=== PATIENT | male | born 1965 | race Caucasian/White ===

== ENCOUNTER → 2022-10-08 08:40 | Outpatient (BNVA) | payer MEDICARE, SELFPAY | PROVIDERS: PCP Nurse Practitioner Family; Visit Provider Nurse Practitioner Family | DX: I10 Essential (primary) hypertension (principal); F41.1 Generalized anxiety disorder; G89.29 Other chronic pain; E11.40 Type 2 diabetes mellitus with diabetic neuropathy, unspecified; E78.5 Hyperlipidemia, unspecified; E11.9 Type 2 diabetes mellitus without complications; G25.81 Restless legs syndrome; Z76.89 Persons encountering health services in other specified circumstances | CPT/HCPCS: 80053; 80061; 81003; 82040; 83036; 84270; 84403; 84439; 84443; 85025 ==

== ENCOUNTER 2023-02-28 11:30 | Emergency (ER) | payer MEDICARE, SELFPAY ==
[2023-02-28 11:46] VITALS: BP 128/70; PULSE 64; RESP 17; TEMP 36.6; O2SAT 94
--- NOTE | 2023-02-28 12:14 | XRR_ITS ---
PROCEDURE INFORMATION: Exam: XR Right Knee Exam date and time: 02/28/2023 12:27 PM Age: 57 years old Clinical indication: Right; Patient HX: RT knee pain after squatting; No previous injury TECHNIQUE: Imaging protocol: Radiologic exam of the right knee. Views: 3 views. COMPARISON: No relevant prior studies available. FINDINGS: Bones/joints: No fracture or dislocation. Mild degenerative changes. Soft tissues: No acute findings. Vascular calcifications. XR/XR knee RT 3V* [id number] IMPRESSION: No acute findings.
--- NOTE | 2023-02-28 12:19 | W.ED.EXTPRO ---
HPI - Extremity Problem General: Chief complaint: Extremity Injury, Lower Stated complaint: right knee pain, swollen Time Seen by Provider: 02/28/23 12:12 Source: patient Mode of arrival: ambulatory Limitations: no limitations History of Present Illness: 57-year-old male states on he had bent down started having right knee pain. States he had pain in his knees before states his pain is continued. States it is worse with movement improved with rest denies any radiation of his pain he states his knee is felt warm denies any fevers Associated symptoms: Deny chest pain, fever(s) or rash Review of Systems Const: Denies: fever(s), chills, body aches or change in appetite ENMT: Denies: throat pain or dental pain Card: Denies: chest pain Resp: Denies: dyspnea GI: Denies: abdominal pain, nausea, vomiting or diarrhea Musc: Reports: extremity pain; Denies: neck pain or back pain Skin/Breast: Denies: rash Neuro: Denies: headache(s) PFSH ED PFSH: Medical History Chronic low back pain Chronic neck pain History of anxiety History of depression Physical Exam Const: COMMON NORMALS: no acute distress, patient oriented x3 and healthy appearing HENMT: COMMON NORMALS: normocephalic and atraumatic HEAD & SCALP: normocephalic and atraumatic Neck/C-Spine: COMMON NORMALS: full ROM and supple Chest: COMMONS NORMALS: normal inspection of the chest Resp: COMMON NORMALS: normal respiratory effort Cardio: COMMON NORMALS: regular rate RATE: regular rate Extremity: COMMON NORMALS: normal to inspection NARRATIVE EXTREMITY EXAM: Tenderness over right knee has some pain with range of motion no redness no warmth to touch distal pulses sensation intact Neuro: COMMON NORMALS: patient oriented x3, moves all extremities and no focal motor deficits Psych: COMMON NORMALS: mental status grossly normal, Normal thought process present and cooperative THOUGHT PROCESS: Normal thought process present Skin: COMMON NORMALS: no rashes or lesions noted and no wounds GENERAL SKIN EXAM: no rashes or lesions noted Course Vital Signs: Vital signs: Vital Signs Temperature 97.9 F 02/28/23 11:46 Pulse Rate 64 02/28/23 12:21 Respiratory Rate 18 02/28/23 12:42 Blood Pressure 128/70 12/16/23 11:46 Pulse Oximetry 98 02/28/23 12:42 Oxygen Delivery Me thod Room Air 02/28/23 12:42 MDM - Extremity (Nontraumatic) Medical Decision Making Patient presents here with right knee pain is no signs of septic joint blood works normal x-ray is normal as well. Will get him follow-up with orthopedics he is stable for discharge return if worsening. Medical Records I reviewed the patient's medical records. Lab Data I reviewed the patient's lab results. 02/28/23 12:30 Radiology Impressions Knee X-Ray 02/28/23 12:14 IMPRESSION: No acute findings. Laboratory Results WBC 9.48 10^3/uL (3.29-11.43) 02/28/23 12:30 RBC 4.89 10^6/uL (3.85-5.65) 02/28/23 12:30 Hgb 14.50 g/dL (11.27-16.99) 02/28/23 12:30 Hct 44.4 % (37-53) 02/28/23 12:30 MCV 90.8 fl (82-101) 02/28/23 12:30 MCH 29.7 pg (27-33) 02/28/23 12:30 MCHC 32.7 g/dL (30-55) 02/28/23 12:30 RDW 12.6 % (12.1-15.1) 02/28/23 12:30 Plt Count 219 10^3/cmm (157-399) 02/28/23 12:30 MPV 10.1 fL (7.4-10.4) 02/28/23 12:30 Neut % (Auto) 76.4 % 02/28/23 12:30 Lymph % (Auto) 12.3 % 02/28/23 12:30 [place] % (Auto) 9.1 % 02/28/23 12:30 Eos % (Auto) 1.3 % 02/28/23 12:30 Baso % (Auto) 0.5 % 02/28/23 12:30 Neut # (Auto) 7.24 10^3/uL (1.8-7.7) 02/28/23 12:30 Lymph # (Auto) 1.2 10^3/uL (0.8-4.8) 02/28/23 12:30 [place] # (Auto) 0.9 10^3/uL (0.2-0.9) 02/28/23 12:30 Eos # (Auto) 0.1 10^3/uL (0.0-0.8) 02/28/23 12:30 Baso # (Auto) 0.1 10^3/uL (0.0-0.1) 02/28/23 12:30 Nucleated RBC % (auto) 0 % 02/28/23 12:30 Nucleated RBCs # 0.0 /100WBC 02/28/23 12:30 C-Reactive Protein 4.5 mg/L (0.0-4.9) 02/28/23 12:30 All radiology interpretation(s) finalized by discharge Discharge Plan Discharge Patient Disposition: Home Clinical Impression: Knee pain, right Qualifiers: Chronicity: acute Qualified Code(s): M25.561 - Pain in right knee Condition: Stable Prescriptions: New Naprosyn 500 mg tablet 500 mg PO BID PRN (Reason: pain) Qty: 20 0RF No Action Novolin R FlexPen 100 unit/mL (3 mL) insulin pen 6 unit SUBCUT BID montelukast 10 mg tablet 10 mg PO QPM oxycodone-acetaminophen 10-325 mg tablet 1 tab PO TID loratadine [Claritin] 10 mg tablet 10 mg PO DAILY PRN (Reason: ALLERGIES) One-A-Day Men VitaCraves 200 mcg tablet,chewable 1 tab PO QAM (DME) blood-glucose meter [Accu-Chek Dhara Plus Meter] Misc See Rx Instructions .Route Qty: 1 0RF Rx Instructions: use to check blood sugar three times daily (DME) Accu-Chek Dhara Plus test strp Strip See Rx Instructions .Route Qty: 100 2RF Rx Instructions: use to check blood sugar tid atorvastatin 20 mg tablet 20 mg PO DAILY gabapentin 600 mg tablet 600 mg PO TID lisinopril 20 mg tablet 20 mg PO QAM baclofen 10 mg tablet 10 mg PO TID PRN (Reason: muscle spasm) Qty: 90 1RF (DME) lancets [BD Ultra Fine Lancets] 33 gauge misc See Rx Instructions .Route Qty: 100 2RF Rx Instructions: use to check blood sugar 4 times per day sertraline [Zoloft] 50 mg tablet 50 mg PO DAILY Qty: 90 0RF Vitamin D3 50 mcg (2,000 unit) Capsule 50 mcg PO DAILY Lantus Solostar U-100 Insulin 100 unit/mL (3 mL) insulin pen 40 unit SUBCUT QAM Discharge Orders: Discharge ED (Routine); Ordered 02/28/23 Ordered By: Bell Kauffman Referrals: Karen Larson MD [Physician] - 1-3 days Osmany Garcia FNP [Primary Care Provider] - Discharge Diet: Advance as tolerated Discharge Activity: Increase activity as tolerated Patient Instructions: Knee Pain (ED) Coding Level of Care Code ED Licensed Bondsman for Francisco J Santos
[2023-02-28 12:21] VITALS: PULSE 64; RESP 15; O2SAT 94
[2023-02-28 12:35] LABS: Basophils # 0.1 10^3/uL (0.0-0.1); Basophils % 0.5 %; Eosinophils # 0.1 10^3/uL (0.0-0.8); Eosinophils % 1.3 %; Hematocrit 44.4 % (37-53); Lymphocytes # 1.2 10^3/uL (0.8-4.8); Lymphocytes % 12.3 %; Mean Corpuscular HGB Conc 32.7 g/dL (30-55); Mean Corpuscular Hemoglobin 29.7 pg (27-33); Mean Corpuscular Volume 90.8 fl (82-101); Mean Platelet Volume 10.1 fL (7.4-10.4); Monocytes # 0.9 10^3/uL (0.2-0.9); Monocytes % 9.1 %; Neutrophils # 7.24 10^3/uL (1.8-7.7); Neutrophils % 76.4 %; Nucleated Red Blood Cells % 0 %; Platelet Count 219 10^3/cmm (157-399); Red Blood Count 4.89 10^6/uL (3.85-5.65); Red Cell Distribution Width 12.6 % (12.1-15.1); White Blood Count 9.48 10^3/uL (3.29-11.43)
[2023-02-28] MEDS: HYDROcodone-acetaminophen 5-325 mg Tablet 1 TAB PO (12:36)
[2023-02-28 12:41] VITALS: RESP 18; O2SAT 98
[2023-02-28] MEDS: morphine 4 mg/mL SDV 1 mL IM (12:41)
[2023-02-28] MEDS: ondansetron 2 mg/ML SDV 2 mL 4 MG IM (12:41)
[2023-02-28 12:42] VITALS: RESP 18; O2SAT 98
[2023-02-28 12:56] LABS: C Reactive Protein 4.5 mg/L (0.0-4.9)
[2023-02-28 13:38] VITALS: BP 129/70; RESP 18; O2SAT 98
--- NOTE | 2023-03-02 09:02 | DCPLANNER ---
Referral was sent to Dr. Larson office on 03/02/23 at 0903. [facility] to contact patient.
== END 2023-02-28 13:39 | disposition home or self-care (01) ==
PROVIDERS: Emergency Provider Emergency Medicine; PCP Nurse Practitioner Family
DX: M25.561 Pain in right knee (principal); Z79.4 Long term (current) use of insulin
CPT/HCPCS: 73562; 85025; 86140; 96372; 99284; J2270; J2405

== ENCOUNTER → 2023-03-19 14:49 | Outpatient (BNVA) | payer MEDICARE, SELFPAY | PROVIDERS: PCP Nurse Practitioner Family; Referring Provider Emergency Medicine; Visit Provider Nurse Practitioner | DX: M25.361 Other instability, right knee; M17.11 Unilateral primary osteoarthritis, right knee | CPT/HCPCS: 73560; 73565; 99204 ==

== ENCOUNTER → 2023-04-07 10:56 | Outpatient (BNVA) | payer MEDICARE, SELFPAY | PROVIDERS: PCP Nurse Practitioner Family; Visit Provider Nurse Practitioner Family | DX: F41.1 Generalized anxiety disorder (principal); R53.83 Other fatigue; M25.361 Other instability, right knee; G47.00 Insomnia, unspecified; Z79.899 Other long term (current) drug therapy | CPT/HCPCS: 82607; 84443 ==

== ENCOUNTER 2023-04-21 13:25 | Outpatient (CLI) | payer MEDICARE, SELFPAY ==
--- NOTE | 2023-04-21 13:45 | MR_ITS ---
WS: [id number] MRI RIGHT KNEE HISTORY: Pain, history of prior trauma. COMPARISON: Radiograph 02/28/2023 Anterior cruciate ligament: Intact. Posterior cruciate ligament: Intact. Medial collateral ligament: Intact. Posterior lateral corner structures: Intact. Medial menisci: Intact. Normal signal, size and shape. Lateral meniscus: No significant identifiable posterior horn of the lateral meniscus. There is fluid replacing nearly entire space of the meniscus. Mild intrasubstance degeneration in the anterior horn. There is fluid extending through the posterior meniscal capsular fascicles. Extensor mechanism: Distal quadriceps tendon and patellar tendons are intact. Fluid and soft tissue: Moderate to large joint effusion. There is a large amount of soft tissue edema surrounding the knee. This is predominantly along the anterior, medial and lateral knee. No Roldan's cyst. There is a large amount of fluid surrounding the popliteus tendon. The tendon does appear to be intact. Normal attachment of the soleus muscle. Osseous and articular structures: Patellofemoral compartment: Normal. Medial compartment: Mild narrowing of the medial compartment. Mild fraying of the cartilage. Lateral compartment: Mild narrowing of the lateral compartment with fraying of the cartilage. No full -thickness defects. Focal area of marrow edema involving the proximal tibia extending to the base of the tibial spines. M arrow edema crosses into the medial and lateral tibial plateau and there is a lucency suggesting micr ofractures extending to the posterior surface of the patella. IMPRESSION: 1. Macerated posterior horn medial meniscus. No significant component of the meniscus remains. Findi ngs of meniscocapsular separation. 2. Focal marrow edema involving the central tibial plateau with microfractures. 3. Moderate to large joint effusion with a large amount of edema surrounding the knee. 4. There is a large amount of fluid surrounding the popliteus tendon but the tendon appears to be in tact.
== END 2023-04-21 13:26 | disposition home or self-care (01) ==
LOC: RAD 13:26
PROVIDERS: PCP Nurse Practitioner Family; Visit Provider Nurse Practitioner
DX: M25.461 Effusion, right knee (principal); M25.561 Pain in right knee
CPT/HCPCS: 73721

== ENCOUNTER → 2023-04-27 12:45 | Outpatient (BNVA) | payer MEDICARE, SELFPAY | PROVIDERS: PCP Nurse Practitioner Family; Visit Provider Nurse Practitioner | DX: M25.361 Other instability, right knee (principal); M17.11 Unilateral primary osteoarthritis, right knee | CPT/HCPCS: 99213 ==

== ENCOUNTER → 2023-04-29 16:47 | Outpatient (BNVA) | payer MEDICARE, SELFPAY | PROVIDERS: PCP Nurse Practitioner Family; Visit Provider Nurse Practitioner | DX: M17.11 Unilateral primary osteoarthritis, right knee; M25.361 Other instability, right knee | CPT/HCPCS: 99213 ==

== ENCOUNTER 2023-05-21 16:12 | Outpatient (CLI) | payer MEDICARE, SELFPAY ==
--- NOTE | 2023-05-21 17:00 | CT_ITS ---
WS: [id number] CT RIGHT KNEE, NONCONTRAST TECHNIQUE: Noncontrast CT of the RIGHT knee to include the RIGHT hip and ankle. [facility] CLINICAL INFORMATION: Pre-surgical planning DLP: [id number] scans at [facility] use at least one of these dose optimization techniques: automated e xposure control; mA and/or kV adjustment per patient size (includes targeted exams where dose is matc hed to clinical indication); or iterative reconstruction. FINDINGS: Moderate degenerative arthritis RIGHT knee worse in the medial joint compartment. Moderate suprapatel lar effusion. Slightly hypertrophic patella. Vascular calcification. Degenerative arthritis sacroiliac joints. IMPRESSION: Images obtained for preoperative purposes.
== END 2023-05-21 16:13 | disposition home or self-care (01) ==
LOC: RAD 16:13
PROVIDERS: PCP Nurse Practitioner Family; Visit Provider Nurse Practitioner
DX: Z01.818 Encounter for other preprocedural examination (principal); E11.9 Type 2 diabetes mellitus without complications; M17.11 Unilateral primary osteoarthritis, right knee; M46.1 Sacroiliitis, not elsewhere classified
CPT/HCPCS: 73700; 80053; 81003; 83036; 85025

== ENCOUNTER 2023-05-28 08:42 | Observation (INO) | payer MEDICARE, SELFPAY ==
[2023-05-28] VITALS (18 sets, daily range): BP systolic 91–154; BP diastolic 55–83; PULSE 57–90; RESP 15–18; TEMP 35.9–36.5; O2SAT 90–96; BMI 31.9
--- NOTE | 2023-05-28 06:57 | ANES.PREANE2 ---
Pre-Anesthetic Assessment Height/Weight: Height 1.73 m Weight 95.254 kg Temp Pulse Resp BP Pulse Ox O2 Del Method 96.7 F L 76 18 138/83 93 Room Air 05/28/23 06:56 05/28/23 06:56 05/28/23 06:56 05/28/23 06:56 05/28/23 06:56 05/28/23 06:56 Operation Date: 05/28/23 08:00 Proposed Procedures p Jose Robot Total Knee Arthroplasty(Right) - Karen Larson MD Familial anesthetic complications: None Was Beta Alo taken within 24 hours: N/A Was Clonidine taken within 24 hours: N/A Last intake: Intake Last Liquid Date 05/27/23 Last Liquid Time 23:00 Last Solid Date 05/27/23 Last Solid Time 21:00 Social No alcohol and No tobacco Exam alert, oriented x 3, clear to auscultation bilaterally and regular rate & rhythm Airway Mallampati: Class II Dentition: full CV/HEM Hypertension LBBB S/p nephrectomy Metabolic Diabetes Mellitus and Hyperlipidemia Anesthetic Plan ASA status: 3 Anesthesia: Regional (specify below) (Spinal + Adductor) Risk of > 500 ml blood loss (7ml/kg in children): No Medications/Allergies Home Medications Medication Instructions Recorded Confirmed Last Taken Type loratadine 10 mg tablet (Claritin) 10 mg PO DAILY PRN ALLERGIES 09/26/22 05/27/23 Unknown History montelukast 10 mg tablet 10 mg PO QPM 09/26/22 05/27/23 05/26/23 History multivitamin with minerals-folic 1 tab PO QAM 09/26/22 05/27/23 05/27/23 History acid 200 mcg chewable tablet (One-A-Day Men VitaCraves) oxycodone-acetaminophen 10 mg-325 1 tab PO TID 09/26/22 05/28/23 05/28/23 04:30 History mg tablet atorvastatin 20 mg tablet 20 mg PO DAILY 10/03/22 05/27/23 05/27/23 History blood-glucose meter (Accu-Chek #1 ea 10/03/22 04/29/23 Unknown Rx Dhara Plus Meter) gabapentin 600 mg tablet 600 mg PO TID 10/03/22 05/28/23 05/28/23 04:30 History lisinopril 20 mg tablet 20 mg PO QAM 10/03/22 05/27/23 05/27/23 History lancets 33 gauge (BD Ultra Fine #100 ea 10/28/22 04/29/23 Unknown Rx Lancets) baclofen 10 mg tablet 10 mg PO TID PRN muscle spasm #90 12/17/22 05/27/23 05/25/23 Rx tabs cholecalciferol (vitamin D3) 50 50 mcg PO DAILY 02/28/23 05/27/23 05/27/23 History mcg (2,000 unit) capsule (Vitamin D3) meloxicam 15 mg tablet 15 mg PO DAILY #90 tabs 03/19/23 05/27/23 05/22/23 Rx sertraline 50 mg tablet (Zoloft) 50 mg PO DAILY #90 tabs 04/01/23 05/27/23 05/26/23 20:00 Rx lorazepam 0.5 mg tablet 0.5 mg PO DAILY PRN anxiety #15 04/07/23 05/28/23 05/28/23 04:30 Rx tabs mecobalamin (vitamin B12) 10,000 1,000 mcg IM .monthly #1 ea 04/07/23 05/27/23 04/22/23 Rx mcg solution for injection right leg brace #1 ea 04/23/23 04/29/23 Unknown Rx insulin regular human 100 unit/mL 6 unit (0.06 mL) SUBCUT BID #15 mL 05/14/23 05/27/23 05/27/23 Rx (3 mL) subcutaneous pen (Novolin R FlexPen) blood sugar diagnostic (Accu-Chek #100 ea 05/15/23 Unknown Rx Dhara Plus test strips) insulin glargine 100 unit/mL (3 42 unit SUBCUT QAM 05/21/23 05/27/23 05/27/23 07:00 History mL) subcutaneous pen (Lantus Solostar U-100 Insulin) Allergies Allergy/AdvReac Type Severity Reaction Status Date / Time metformin Allergy Unknown Uncoded 05/21/23 14:58 [facility] Anesthesia Medical History Instability of right knee joint Primary osteoarthritis of right knee Chronic neck pain Chronic low back pain History of depression History of anxiety Data Anesthesia Cardiac Studies: No Data to Display
[2023-05-28] MEDS: sodium chloride 0.9% 1,000 ML 30 ML IV (07:10)
[2023-05-28] MEDS: acetaminophen 1,000 MG/100 ML PIGGYBACK 400 MG IV ×3 (07:10→23:27)
[2023-05-28 07:26] LABS: Glucose Point of Care 116 mg/dL (70-110)
[2023-05-28] MEDS: CELEcoxib 200 mg Capsule 400 MG PO (07:30)
--- NOTE | 2023-05-28 08:04 | P.HPUD_ITS ---
Surgery/Procedure H&P Update DATE OF PROCEDURE: May 28, 2023 DATE H&P PERFORMED: 05/21/23 H&P UPDATE INFORMATION: I have reviewed H&P completed within last 30 days, I have examined patient prior to procedure, No changes to prior documentation and H&P is in [facility] EMR on date indicated CHANGES TO PREVIOUS DOCUMENTATION: Risks and complications further discussed with patient and his in pre-op area. PLANNED PROCEDURE: Operation Date: 05/28/23 08:00 Proposed Procedures p Jose Robot Total Knee Arthroplasty(Right) - Karen Larson MD Related Problem List Diagnoses (1) Primary osteoarthritis of right knee:
[2023-05-28] MEDS: ceFAZolin 2,000 MG in sodium chloride 0.9% (plus) 50 ML 100 MG IV ×2 (08:11→15:58)
[2023-05-28] MEDS: tranexamic acid 1,000 mg/10mL SDV 1000 MG IV (08:28)
--- NOTE | 2023-05-28 08:29 | PC.NURSE ---
Pre op gabapentin not given because pt already took gabapentin at home this morning. Nerve block done on right leg by Dr. Peter.
[2023-05-28] MEDS: BUPivacaine 0.5% INJ 30 mL 20 ML INJECTION (09:12)
[2023-05-28] MEDS: BUPivacaine liposome 13.3 mg/mL SDV 10 mL 266 MG INJECTION (09:12)
[2023-05-28] MEDS: ceFAZolin 1,000 mg SDV 2000 MG IRRIGATION (09:13)
[2023-05-28] MEDS: vancomycin 1,000 MG SDV 1000 MG XX (09:14)
[2023-05-28] MEDS: sodium chloride 0.9% 50 ML 0.100000000000000006 ML (09:16)
--- NOTE | 2023-05-28 11:11 | XRR_ITS ---
PROCEDURE INFORMATION: Exam: XR Right Knee Exam date and time: 05/28/2023 10:35 AM Age: 57 years old Clinical indication: Device placement; Joint replacement hardware; Prior surgery; Surgery date: Post-operative (0-2 days); Surgery type: Right total knee arthroplasty; Additional info: Status post right total knee arthroplasty TECHNIQUE: Imaging protocol: Radiologic exam of the right knee. Views: 1 or 2 views. COMPARISON: CT knee RT [facility] [id number] 05/21/2023 4:26 PM FINDINGS: Bones/joints: Status post recent right knee total arthroplasty. No radiographic evidence of hardware fracture or perihardware lucency. Soft tissues: Expected subcutaneous air about the knee and within the joint. Vasculature: Vascular calcific disease. XR/XR knee RT 1-2V [id number] IMPRESSION: Status post recent right knee total arthroplasty. No radiographic evidence of hardware complication.
--- NOTE | 2023-05-28 11:33 | P.OP_ITS ---
Operative Report Date of procedure: May 28, 2023 Pre-op diagnosis: Primary osteoarthritis right knee with maceration of the medial meniscus Post-op diagnosis: Primary osteoarthritis right knee with maceration of the medial meniscus Post-op findings: Severe degenerative osteoarthritis right knee with bucket-handle lateral meniscal tear with maceration Procedure done: Right total knee arthroplasty with Jose guidance Implants: The Terese total knee system with a size 4 triathlon beaded cruciate retaining femur right, a triathlon titanium tibial component size 4 beaded, a triathlon X3 tibial bearing CS insert size 4 X 9 mm and a beaded triathlon titanium asymmetric patella size 35 x 10 mm Specimens removed/disposition: Bone, disposed of Pathology: None Surgeon: Karen Larson MD Finance Vice President: Judy Evans, nurse practitioner, who services were essential for positioning, retraction, closure, and completion of the surgical procedure Anesthesia: Spinal (With MAC, ASA 3) Estimated blood loss (mL): 300 Tourniquet time (min): 0 (Not utilized) IV fluids (mL): 1,200 Urine output (mL): 150 Complications: None Findings: Significant degenerative osteoarthritis with bucket-handle tear of the lateral meniscus and maceration of the medial meniscus Condition: stable Disposition: PACU (Then admit to floor for postoperative rehabilitation and pain management) Brief History: This 57-year-old gentleman presents today for right total knee arthroplasty with Jose guidance. The patient noted that he began having pain in the right knee quite a while ago, however, this worsened following an injury on February 26, 2023. He had mechanical symptoms of locking popping and giving way. The pain was worse with movement and improved with rest. MRI demonstrated a macerated posterior horn the medial meniscus with large to moderate joint effusion and edema surrounding the knee. There was focal marrow edema involving the central tibial plateau with microfractures as well. X-ray imaging demonstrated degenerative changes throughout the knee with no evidence of acute fracture. After discussion, the patient wished to proceed with total knee arthroplasty. Risks and complications were discussed with him. Consents were signed and questions were answered. Procedure: The patient was brought to the operating theater, and after undergoing spinal anesthesia with supplemental MAC, as well as an adductor canal block, ASA 3, the right lower extremity was prepped with Dura-Prep and draped in usual fashion following placement of a tourniquet high on the leg. The leg was then draped free.? Tourniquet was not elevated during the case.? A surgical pause was performed, and at the time of the surgical pause, we confirmed the site and side of surgery. Additionally, we confirmed the appropriate and timely administration of preoperative antibiotics, Ancef 2 g and Transexemic acid 1 g.? The availability of equipment was confirmed, and the patient's identity was verbalized as well.? An additional transexemic acid 1 g was given at the end of the surgical procedure as well. Following the surgical pause, an incision was made centering over the patella continuing proximally and distally as necessary to allow access to the knee joint. Dissection continued through skin and soft tissues using a scalpel. Hemostasis was obtained using electrocautery. The skin incision was followed by a median parapatellar arthrotomy. The leg was extended, and the patella was able to be displaced laterally.? Appropriate arrays and markers were placed in appropriate position for use of the Jose.? Preoperative planning had been accomplished and was discussed in detail with the [facility] junior sales representative.? Intraoperative mapping of the femur and tibia was accomplished after the arrays were placed.? Internal markers were also placed.? Once we had accomplished the Jose mapping, we began the appropriate resections for placement of the prosthes is.? The plan was for a cruciate retaining right total knee arthroplasty. Once appropriate mapping had been accomplished retraction was established using manual retraction by surgical technicians and also the [facility] leg positioner and retractors.? The knee was evaluated.? There was significant osteoarthritic change as well as slight flexion contracture along with his varus deformity.? Appropriate bone resection was accomplished using the Jose.? The femur was sized to a size 4.? Following femoral cuts, attention was directed to the tibia.? Osteophytes were removed prior to this portion of the procedure.? We had performed a medial release at the beginning of the procedure to allow for placement of the array.? Proximal tibia was evaluated, and it was felt that appropriate size for the tibia was a size 4.? Tray was noted to fit nicely with good coverage.? Rim fit was accomplished with the size 4. A trial reduction was accomplished after osteophytes have been removed as well as the medial and lateral menisci.? We had removed the anterior cruciate ligament at the beginning of the case and preserved the posterior cruciate ligament.? Trial reduction was accomplished with a size 4 femoral cruciate retaining component and a size 4 CS tibial bearing insert which was 10 mm in thickness initially, and this was decreased under trial reduction to a size 9 mm. Alignment was felt to be appropriate as well.? Trial components were removed after the femur had been drilled.? Prior to removal of the tibial tray which had been pinned in position with appropriate rotation as determined by the Jose plan, we broached the tibia.? Subsequently, the 4 drill holes were made for the prosthetic component.? All trial components were removed, and the wound was irrigated.? Plans were made for insertion of the prosthetic components.? Prior to this, the patella was manually prepared.? After resection of the articular surface with the jigging system, it was measured and measured a 35 mm patella.? We resected approximately 10 mm of patella.? Patellar height was restored with the patellar component. Once again, the wound was irrigated.? The Tritanium tibia was impacted into position.? The beaded femur was then impacted into position in a cementless fashion. The CS tibial insert was placed prior to placement of the femoral component. The patella was pressed into position with a patellar clamp.? Exparel was injected about the components deep and superficially.? The knee was then copiously irrigated with betadine and saline and suctioned dry. Attention was then directed to closure. Closure was accomplished with 0 Vicryl in the fascial tissues.? The suture line of 0 Vicryl was supplemented with strata fix, #1, with a running stitch from proximal to distal and a second running stitch from distal to proximal.? This was followed by Surgiflo and vancomycin powder.? Following this, a 2-0 Monocryl was used in the subcutaneous tissues, and the skin was closed with 3-0 Strata fix.? Care was taken to assure an excellent subcutaneous as well as skin closure.? A sterile dressing was then placed consisting of Dermabond Prineo, OpSite, ABD, sterile soft roll, and an Deonte wrap including over the foot. The patient was returned the Recovery Room in a satisfactory condition. X-rays were obtained and reviewed there.? The patient will be discharged to the floor for postoperative rehabilitation and pain management. Related Problem List Diagnoses (1) Primary osteoarthritis of right knee: (2) Instability of right knee joint:
--- NOTE | 2023-05-28 12:00 | ANE.PACU2 ---
Inpatient post-anesthesia follow up: Airway intact: Yes Vital signs: Temperature 97.7 F Pulse Rate 69 Respiratory Rate 16 Blood Pressure 129/74 Pulse Oximetry 96 Oxygen Delivery Me thod Room Air Oxygen Flow Rate 6 Fraction of Inspir ed Oxygen Hydration adequate: Yes Nausea and vomiting: No Pain level: 1 Mental status: Baseline
--- NOTE | 2023-05-28 12:41 | PC.NURSE ---
Patient takes Casa at bedtime and lorazepam PRN
[2023-05-28] MEDS: oxyCODONE 5 mg IR Tab/Cap PO ×3 (13:26→23:26)
[2023-05-28] MEDS: chlorhexidine gluconate 0.12% Btl 473 mL 30 ML MUCOUS MEM ×3 (13:30→20:10)
[2023-05-28] MEDS: gabapentin 300 mg Capsule 600 MG PO ×2 (15:37→20:08)
[2023-05-28 16:37] LABS: Glucose Point of Care 193 mg/dL (70-110)
[2023-05-28] MEDS: mupirocin oint 22 gm 1 APPLIC NASAL (17:51)
[2023-05-28] MEDS: insulin lispro 100 unit/1 mL 6 UNIT SUBCUT (17:51)
[2023-05-28] MEDS: calcium carbonate 500 mg Chew Tablet 1000 MG PO (17:51)
[2023-05-28] MEDS: montelukast sodium 10 mg Tablet PO (17:52)
[2023-05-28] MEDS: sennosides-docusate Tablet 2 TAB PO (17:52)
[2023-05-28] MEDS: iron polysaccharide complex 150 mg Capsule PO (17:52)
[2023-05-28 19:54] LABS: HIV 1 & 2 Antibody Non-Reactive (Non-Reactiv); HIV 1 & 2 Antigen Non-Reactive (Non-Reactiv)
[2023-05-28] MEDS: baclofen 10 mg Tablet PO (20:10)
[2023-05-28 21:53] LABS: Glucose Point of Care 348 mg/dL (70-110)
[2023-05-28 22:17] LABS: Hepatitis B Surface Antigen Non-Reactive (Nonreactive); Hepatitis C Virus Antibody Non-Reactive (Nonreactive)
--- NOTE | 2023-05-28 22:22 | PM.CONSULT ---
Providers/Reason For Consult Consulting Physician/Specialty*: Hospitalist Reason for Consult*: Diabetes Attending Physician: Karen Larson MD Primary Care Provider: Osmany Garcia History of Present Illness History of Present Illness Riley Brooks is a 57 year old male type II diabetic takes long-acting insulin 42 units in the daytime, then he takes Novolin 6 units twice a day, trying to avoid hypoglycemia because hemoglobin A1c is around 7 status post knee surgery hospital service consulted for diabetic hyperglycemic management. Patient has not received his long-acting insulin on 05/27 because of the surgery, I would like to keep his scheduled long-acting insulin in the daytime and will give him medium dose/intensity sliding scale for now add IV fluids, patient is requesting his opioids which is mostly every 8 hours. Nurse is aware we will make dose changes in his medications. Review of Systems Const: Denies: fever(s) Eyes: Denies: change in vision ENMT: Denies: throat pain Card: Denies: chest pain Resp: Denies: dyspnea Medications/Allergies Home Medications Medication Instructions Recorded Confirmed Last Taken Type loratadine 10 mg tablet (Claritin) 10 mg PO DAILY PRN ALLERGIES 09/26/22 05/27/23 Unknown History montelukast 10 mg tablet 10 mg PO QPM 09/26/22 05/27/23 05/26/23 History multivitamin with minerals-folic 1 tab PO QAM 09/26/22 05/27/23 05/27/23 History acid 200 mcg chewable tablet (One-A-Day Men VitaCraves) oxycodone-acetaminophen 10 mg-325 1 tab PO TID 09/26/22 05/28/23 05/28/23 04:30 History mg tablet atorvastatin 20 mg tablet 20 mg PO DAILY 10/03/22 05/27/23 05/27/23 History blood-glucose meter (Accu-Chek #1 ea 10/03/22 04/29/23 Unknown Rx Dhara Plus Meter) gabapentin 600 mg tablet 600 mg PO TID 10/03/22 05/28/23 05/28/23 04:30 History lisinopril 20 mg tablet 20 mg PO QAM 10/03/22 05/27/23 05/27/23 History lancets 33 gauge (BD Ultra Fine #100 ea 10/28/22 04/29/23 Unknown Rx Lancets) baclofen 10 mg tablet 10 mg PO TID PRN muscle spasm #90 12/17/22 05/27/23 05/25/23 Rx tabs cholecalciferol (vitamin D3) 50 50 mcg PO DAILY 02/28/23 05/27/23 05/27/23 History mcg (2,000 unit) capsule (Vitamin D3) meloxicam 15 mg tablet 15 mg PO DAILY #90 tabs 03/19/23 05/27/23 05/22/23 Rx sertraline 50 mg tablet (Zoloft) 50 mg PO DAILY #90 tabs 04/01/23 05/27/23 05/26/23 20:00 Rx lorazepam 0.5 mg tablet 0.5 mg PO DAILY PRN anxiety #15 04/07/23 05/28/23 05/28/23 04:30 Rx tabs right leg brace #1 ea 04/23/23 04/29/23 Unknown Rx insulin regular human 100 unit/mL 6 unit (0.06 mL) SUBCUT BID #15 mL 05/14/23 05/27/23 05/27/23 Rx (3 mL) subcutaneous pen (Novolin R FlexPen) blood sugar diagnostic (Accu-Chek #100 ea 05/15/23 Unknown Rx Dhara Plus test strips) insulin glargine 100 unit/mL (3 42 unit SUBCUT QAM 05/21/23 05/27/23 05/27/23 07:00 History mL) subcutaneous pen (Lantus Solostar U-100 Insulin) mecobalamin (vitamin B12) 10,000 1,000 mcg IM .monthly #1 ea 05/28/23 Unknown Rx mcg solution for injection Allergies Allergy/AdvReac Type Severity Reaction Status Date / Time metformin Allergy Unknown Uncoded 05/21/23 14:58 Current Medications Generic Name Dose Route Start Last Admin Trade Name Freq PRN Reason Stop Dose Admin Baclofen 10 mg 05/28/23 12:11 05/28/23 20:10 Baclofen 10 Mg Tablet PO 10 mg TID PRN Administration muscle spasm Calcium Carbonate 1,000 mg 05/28/23 18:00 05/28/23 17:51 Calcium Carbonate 500 Mg Chew Tablet PO 1,000 mg BID ERVIN Administration Chlorhexidine Gluconate 30 ml 05/28/23 13:00 05/28/23 20:10 Chlorhexidine Gluconate 0.12% Btl 473 Ml MUCOUS MEM 30 ml QID ERVIN Administration Gabapentin 600 mg 05/28/23 15:00 05/28/23 20:08 Gabapentin 300 Mg Capsule PO 600 mg TID ERVIN Administration Cefazolin Sodium 2,000 mg/ 50 mls @ 100 mls/hr 05/28/23 16:00 05/28/23 19:35 Sodium Chloride IV 05/29/23 08:29 Infused Q8H ERVIN Infusion Protocol Acetaminophen 1,000 mg in 100 mls @ 400 mls/hr 05/28/23 15:00 05/28/23 19:17 Acetaminophen IV 05/29/23 07:14 Infused Q8H ERVIN Infusion Montelukast Sodium 10 mg 05/28/23 18:00 05/28/23 17:52 Montelukast Sodium 10 Mg Tablet PO 10 mg QPM ERVIN Administration Mupirocin 1 applic 05/28/23 18:00 05/28/23 17:51 Mupirocin Oint 22 Gm NASAL 06/02/23 17:59 1 applic BID ERVIN Administration Protocol Oxycodone HCl 5 - 10 mg 05/28/23 12:11 05/28/23 18:04 Oxycodone 5 Mg Ir Tab/Cap PO 10 mg Q4H PRN Administration MODERATE PAIN Polysaccharide Iron Complex 150 mg 05/28/23 18:00 05/28/23 17:52 Iron Polysaccharide Complex 150 Mg Capsule PO 150 mg BIDWM ERVIN Administration Senna/Docusate Sodium 2 tab 05/28/23 18:00 05/28/23 17:52 Sennosides-Docusate Tablet PO 2 tab BID ERVIN Administration PFSH Acute PFSH: Medical History Instability of right knee joint Primary osteoarthritis of right knee Chronic neck pain Chronic low back pain History of depression History of anxiety Vitals/I&O/Wt Last Vital Signs Temp 97.7 F 05/28/23 20:43 Pulse 77 05/28/23 20:43 Resp 17 05/28/23 20:43 BP 154/8 05/28/23 20:43 Pulse Ox 94 05/28/23 20:43 O2 Del Method Room Air 05/28/23 20:43 O2 Flow Rate 6 05/28/23 11:26 03/05/28/23 05/28/23 06:59 14:59 22:59 Intake Total 1450 / 1450 150 / 1600 Output Total 600 / 600 450 / 1050 Balance 850 / 850 -300 / 550 Weight last 48 hrs Weight 95.254 kg Weight 95.254 kg Physical Exam Narrative: Patient is awake and alert GCS 15 Pleasant cough Jennings catheter in place Complaining of pain in his back neck and knee Nonfocal neuroexam Watching TV Currently on room air Pleasant cooperative Urinary Catheter Management: Jennings: Cath Placed During This Visit: yes Reason for Continuing Indwelling Catheter: Perioperative Use in Selected Surgeries Urinary Catheter Date of Insertion: 05/28/23 Urinary Catheter Time of Insertion: 08:40 A&P Assessment and plan (1) Generalized anxiety disorder: (2) Hypertension: (3) Diabetes: (4) Diabetic neuropathy: (5) Restless leg syndrome: (6) Insomnia: Plan Type 2 diabetes Hemoglobin A1c is 7, it was 7.5 before, he will be considered high risk for hypoglycemia Patient is aware of that complication He has missed his long-acting insulin dose on surgical date I would not change his insulin schedule for now I will add IV fluids at 100 mill per hour give him medium intensity sliding scale and regular IV insulin 5 units only and keep monitoring his blood sugar with goal/target of 140-180 mg/dL in the hospital I am sure once he is back on his regular insulin regimen his blood sugars stay well-controlled I will change his opioids to every 8 hours home regimen as well Postop day 0 Primary management by orthopedic Continue consistent carb diet Consult Attestations Medical Necessity Statement: As per orthopedic Diagnoses Generalized anxiety disorder F41.1 Hypertension I10 Diabetes E11.9 Diabetic neuropathy E11.40 Restless leg syndrome G25.81 Insomnia G47.00
[2023-05-28] MEDS: insulin lispro 100 unit/1 mL SUBCUT (23:25)
[2023-05-29] VITALS (8 sets, daily range): BP systolic 129–137; BP diastolic 63–67; PULSE 71–80; RESP 15–18; TEMP 36.4–36.7; O2SAT 93–94; BMI 31.9
[2023-05-29] MEDS: sodium chloride 0.9% 1,000 ML 100 ML IV ×2 (00:02→12:20)
[2023-05-29] MEDS: ceFAZolin 2,000 MG in sodium chloride 0.9% (plus) 50 ML 100 MG IV ×2 (00:03→08:31)
[2023-05-29] MEDS: LORazepam 0.5 mg Tablet PO (00:05)
[2023-05-29 00:43] LABS: Glucose Point of Care 280 mg/dL (70-110)
[2023-05-29] MEDS: HYDROmorphone 1 mg/mL INJ 1 mL 0.5 MG IVP ×3 (03:04→14:23)
[2023-05-29] MEDS: oxyCODONE 5 mg IR Tab/Cap PO ×2 (03:52→12:32)
[2023-05-29 05:21] LABS: Basophils % 0.2 %; Eosinophils % 0.2 %; Hematocrit 34.9 % (37-53); Lymphocytes # 0.9 10^3/uL (0.8-4.8); Lymphocytes % 6.8 %; Mean Corpuscular HGB Conc 33.2 g/dL (30-55); Mean Corpuscular Hemoglobin 29.4 pg (27-33); Mean Corpuscular Volume 88.6 fl (82-101); Mean Platelet Volume 10.5 fL (7.4-10.4); Monocytes # 1.6 10^3/uL (0.2-0.9); Monocytes % 12.3 %; Neutrophils # 10.41 10^3/uL (1.8-7.7); Neutrophils % 79.9 %; Nucleated Red Blood Cells % 0 %; Platelet Count 233 10^3/cmm (157-399); Red Blood Count 3.94 10^6/uL (3.85-5.65); Red Cell Distribution Width 13.2 % (12.1-15.1); White Blood Count 13.02 10^3/uL (3.29-11.43)
[2023-05-29] MEDS: lisinopril 20 mg Tablet PO (06:35)
[2023-05-29] MEDS: acetaminophen 1,000 MG/100 ML PIGGYBACK 400 MG IV (06:36)
[2023-05-29 06:44] LABS: Glucose Point of Care 175 mg/dL (70-110)
--- NOTE | 2023-05-29 07:11 | PC.NURSE ---
Nurse administered dose insulin gargline 42 units. Ordered dose was 40 units.
[2023-05-29] MEDS: oxyCODONE-APAP 10-325 mg Tablet 1 TAB PO (08:32)
[2023-05-29] MEDS: iron polysaccharide complex 150 mg Capsule PO (08:33)
[2023-05-29] MEDS: insulin lispro 100 unit/1 mL SUBCUT ×2 (08:33→12:20)
[2023-05-29] MEDS: cholecalciferol (vitamin D3) 1,000 unit Tablet 1000 UNIT PO (08:35)
[2023-05-29] MEDS: sertraline 50 mg Tablet PO (08:35)
[2023-05-29] MEDS: calcium carbonate 500 mg Chew Tablet 1000 MG PO (08:35)
[2023-05-29] MEDS: sennosides-docusate Tablet 2 TAB PO (08:36)
[2023-05-29] MEDS: atorvastatin 40 mg Tablet PO (08:36)
[2023-05-29] MEDS: gabapentin 300 mg Capsule 600 MG PO (08:36)
[2023-05-29] MEDS: aspirin 325 mg EC Tablet PO (08:36)
[2023-05-29] MEDS: multivitamin therapeutic Tablet 1 TAB PO (08:36)
[2023-05-29] MEDS: mupirocin oint 22 gm 1 APPLIC NASAL (08:45)
[2023-05-29] MEDS: meloxicam 7.5 mg tablet 15 MG PO (08:45)
[2023-05-29] MEDS: chlorhexidine gluconate 0.12% Btl 473 mL 30 ML MUCOUS MEM ×2 (08:46→12:36)
--- NOTE | 2023-05-29 09:51 | PC.CHAP ---
Pastoral Care Encounter/Spiritual Assessment Type of Contact [] Declined firefighter type one visit [] Patient/Family/Request visit [] Outpatient visit [] Follow-up visit [] Physician referral [] Code/Alert [x] Routine visit [] Staff referral [] Actively dying [] Patient sleeping [] Family support [] [] Out of room [] Palliative care [] [] Receiving care in room [] Pre-surgical visit [] Trauma [] Long length of stay [] ICU visit [] Other: Relational/Emotional Strength [x] Patient feels connected with others/family/visitors/staff [] Distress [] Loneliness/isolation [] Abandonment Spirituality of Patient [x] Person of Missy [] Attends Mandaeism of their Missy [x] Believes in Prayer [] Reads Bible or Jainism materials [] There are Spiritual issues to be addressed Acquisitions Editor Interventions [x] Prayer [x] Active listening [] Non-anxious presence [x] Spiritual/emotional support [] Crisis/trauma care [] Spiritual counseling [] Bereavement support [] Provided bereavement packet [] Provided Bible/devotional materials [] Provided toy/stuffed animal, coloring book to patient or family member [] Provided Communion [] Anointing/[place] [] Salvation [x] Completed spiritual assessment [] Other: Impact on Illness or Injury [] Angry [] Fearful [] Anxious [] Often cries [] Exhaustion [] Unable to work [] Unable to attend yarsani [] Unable to walk/stand [] Unable to read [] Unable to drive [] Unable to eat/drink [] Unable to sleep [] Unable to be with family [] Patient intubated [] Other: Summary Time spent with patient 5 min
[2023-05-29 11:14] LABS: Glucose Point of Care 259 mg/dL (70-110)
--- NOTE | 2023-05-29 12:40 | P.PN_ITS ---
Subjective 2 Subjective: Discussed with patient regarding his insulin. He states that he has been on it for a long time since 2019. He had insurance issues and therefore could not use any other medication. He is allergic to metformin. He says he sometimes does have hypoglycemic episodes at home down to 65. He self adjusted his Lantus maybe 4 or 5 times a year. At this time he is quite confused why his sugars have been high. I did explain to him that with active recent surgery and stress of the bodies that are secondary to surgery his sugars may run high for some time. He says he does have a sliding scale at home but does not have to use it. We discussed that we will be reducing his insulin to 35 units daily however Lantus at time of discharge He may continue sliding scale as per his previous regimen at time of discharge. Otherwise we will not change his regimen. He should be referred to endocrinology at discharge for further management of his diabetes. Patient in agreement. Vitals/I&O/Wt Last Vital Signs Temp 97.6 F 05/29/23 05:50 Pulse 71 05/29/23 05:50 Resp 18 05/29/23 12:32 BP 129/63 05/29/23 05:50 Pulse Ox 93 05/29/23 12:32 O2 Del Method Room Air 05/29/23 05:50 O2 Flow Rate 6 05/28/23 11:26 05/28/23 05/29/23 05/29/23 22:59 06:59 14:59 Intake Total 390 / 1840 150 / 1990 1000 / 1000 Output Total 450 / 1050 1225 / 2275 Balance -60 / 790 -1075 / -285 1000 / 1000 Weight last 48 hrs Weight 95.254 kg Weight 95.254 kg Weight 95.254 kg Physical Exam 2 Narrative: Patient is awake and alert GCS 15 Pleasant cough Jennings catheter in place Complaining of pain in his back neck and knee Nonfocal neuroexam Watching TV Currently on room air Pleasant cooperative Urinary Catheter Management: Jennings: Cath Placed During This Visit: yes, but has since been removed by the nurse Reason for Continuing Indwelling Catheter: Decision to DC Catheter Urinary Catheter Date of Insertion: 05/28/23 Urinary Catheter Time of Insertion: 08:40 Date Urinary Catheter Removed: 05/29/23 Time Urinary Catheter Discontinued: 06:45 Data 05/29/23 05:03 A&P Assessment and plan (1) Generalized anxiety disorder: (2) Hypertension: (3) Diabetes: (4) Diabetic neuropathy: (5) Restless leg syndrome: (6) Insomnia: Plan Type 2 diabetes Hemoglobin A1c is 7, it was 7.5 before, he will be considered high risk for hypoglycemia Patient is aware of that complication He has missed his long-acting insulin dose on surgical date I would continue his Lantus to be 42 units in hospital setting however at discharge would recommend him to go home on 35 units every morning since he does have episodes of hypoglycemia. He may continue sliding scale insulin as per home regimen at time of discharge and adjust accordingly. ? Recommend endocrinology follow-up at discharge with Dr. Chiang for further management of diabetes ? Patient allergic to metformin. He is interested in starting other oral diabetes medications however would like to discuss with a specialist prior to doing so. He says he has been insulin for the last 5 years. Denies being symptomatic from hypoglycemia but has seen as low as 65 blood sugar. Continue keep monitoring his blood sugar with goal/target of 140-180 mg/dL in the hospital I will change his opioids to every 8 hours home regimen as well Postop day 0 Primary management by orthopedic Continue consistent carb diet Hypertension stable Medicine will continue to follow at this time. Attestations 2 Medical Necessity Statement*: Defer to primary team Diagnoses Generalized anxiety disorder F41.1 Hypertension I10 Diabetes E11.9 Diabetic neuropathy E11.40 Restless leg syndrome G25.81 Insomnia G47.00
--- NOTE | 2023-05-29 15:08 | PM.DCS ---
Discharge Providers Date of Admission: 05/28/23 08:42 Date of Discharge: May 29, 2023 Attending Provider at Admission: Karen Larson MD Attending Provider at Discharge: Karen Larson MD Consults: Hospitalist team, Dr. Amaya and Dr. Stephens Primary Care Provider: Osmany Garcia Diagnoses at Discharge Discharge Diagnosis (1) Status post total right knee replacement not using cement: Status: Acute Permanent problem details: Date of procedure: May 28, 2023 Diagnosis: Primary osteoarthritis right knee with maceration of the medial meniscus Procedure done: Right total knee arthroplasty with Jose guidance Implants: The Blink for iPhone and Android total knee system with a size 4 triathlon beaded cruciate retaining femur right, a triathlon titanium tibial component size 4 beaded, a triathlon X3 tibial bearing CS insert size 4 X 9 mm and a beaded triathlon titanium asymmetric patella size 35 x 10 mm (2) Generalized anxiety disorder: Status: Acute (3) Hypertension: Status: Acute (4) Diabetes: Status: Acute (5) Diabetic neuropathy: Status: Acute (6) Restless leg syndrome: Status: Acute (7) Insomnia: Status: Acute Reason for Visit Reason for Visit: M17.11 Brief History: This 57-year-old gentleman presents today for right total knee arthroplasty with Jose guidance. The patient noted that he began having pain in the right knee quite a while ago, however, this worsened following an injury on February 26, 2023. He had mechanical symptoms of locking popping and giving way. The pain was worse with movement and improved with rest. MRI demonstrated a macerated posterior horn the medial meniscus with large to moderate joint effusion and edema surrounding the knee. There was focal marrow edema involving the central tibial plateau with microfractures as well. X-ray imaging demonstrated degenerative changes throughout the knee with no evidence of acute fracture. After discussion, the patient wished to proceed with total knee arthroplasty. Risks and complications were discussed with him. Consents were signed and questions were answered. Hospital Course Hospital Course Patient underwent same-day total knee arthroplasty uneventfully. He is somewhat of a brittle diabetic, and hospitalist consultation was obtained to monitor his diabetes through his hospital stay. Adjustments were made to his medications as appropriate, and the patient was stabilized with regards to his diabetes. He worked with physical therapy and was able to ambulate uneventfully. He was felt safe for discharge home on the first postoperative day. His dressings were removed down to the OpSite, and soft tissues were noted to be benign. There was no evidence of DVT, and the patient was discharged home to follow-up in the office as scheduled. Physical Exam Const: COMMON NORMALS: no acute distress, average body habitus, patient oriented x3 and alert GENERAL APPEARANCE: cooperative and comfortable ORIENTATION/CONSCIOUSNESS: Yes awake HENMT: COMMON NORMALS: normocephalic and atraumatic HEAD & SCALP: normocephalic and atraumatic Eye: GENERAL EYE: appearance normal, both eyes and all related structures Chest: COMMONS NORMALS: normal inspection of the chest Resp: COMMON NORMALS: normal respiratory effort EFFORT & INSPECTION: Yes able to speak in complete sentences and Yes symmetric chest movement Extremity: RIGHT LOWER EXTREMITY: Yes knee joint (Large outer dressing was removed.) Right knee: Yes inspection (No significant swelling or ecchymosis), Yes ROM (Able to straight leg raise) and Yes neurovascular exam (No evidence of DVT) Neuro: COMMON NORMALS: patient oriented x3 SENSORIUM/ORIENTATION: Yes alert Psych: COMMON NORMALS: mental status grossly normal APPEARANCE: Yes grossly normal ATTITUDE: Yes calm and Yes engaged ATTENTION/CONCENTRATION: Yes attention grossly intact Skin: COMMON NORMALS: no rashes or lesions noted GENERAL SKIN EXAM: no rashes or lesions noted Urinary Catheter Management: Jennings: Cath Placed During This Visit: yes, but has since been removed by the nurse Reason for Continuing Indwelling Catheter: Decision to DC Catheter Urinary Catheter Date of Insertion: 05/28/23 Urinary Catheter Time of Insertion: 08:40 Date Urinary Catheter Removed: 05/29/23 Time Urinary Catheter Discontinued: 06:45 Discharge Data Studies Completed and Pending Completed Studies During Hospitalization Category Date Time Status XR knee RT 1-2V 37579 Routine Exams 05/28/23 11:11 Completed Radiology Impressions Knee X-Ray 05/28/23 11:11 IMPRESSION: Status post recent right knee total arthroplasty. No radiographic evidence of hardware complication. Laboratory Results WBC 13.02 10^3/uL (3.29-11.43) H 05/29/23 05:03 RBC 3.94 10^6/uL (3.85-5.65) 05/29/23 05:03 Hgb 11.60 g/dL (11.27-16.99) 05/29/23 05:03 Hct 34.9 % (37-53) L 05/29/23 05:03 MCV 88.6 fl (82-101) 05/29/23 05:03 MCH 29.4 pg (27-33) 05/29/23 05:03 MCHC 33.2 g/dL (30-55) 05/29/23 05:03 RDW 13.2 % (12.1-15.1) 05/29/23 05:03 Plt Count 233 10^3/cmm (157-399) 05/29/23 05:03 MPV 10.5 fL (7.4-10.4) H 05/29/23 05:03 Neut % (Auto) 79.9 % 05/29/23 05:03 Lymph % (Auto) 6.8 % 05/29/23 05:03 Cooke % (Auto) 12.3 % 05/29/23 05:03 Eos % (Auto) 0.2 % 05/29/23 05:03 Baso % (Auto) 0.2 % 05/29/23 05:03 Neut # (Auto) 10.41 10^3/uL (1.8-7.7) H 05/29/23 05:03 Lymph # (Auto) 0.9 10^3/uL (0.8-4.8) 05/29/23 05:03 [place]oke # (Auto) 1.6 10^3/uL (0.2-0.9) H 05/29/23 05:03 Eos # (Auto) 0.0 10^3/uL (0.0-0.8) 05/29/23 05:03 Baso # (Auto) 0.0 10^3/uL (0.0-0.1) 05/29/23 05:03 Nucleated RBC % (auto) 0 % 05/29/23 05:03 Nucleated RBCs # 0.0 /100WBC 05/29/23 05:03 POC Glucose 259 mg/dL (70-110) H 05/29/23 11:00 Hep Bs Antigen Non-reactive (Nonreactive) 05/28/23 11:00 Hepatitis C Antibody Non-reactive (Nonreactive) 05/28/23 11:00 HIV 1&2 Ab & HIV 1 Ag Non-reactive (Non-Reactiv) 05/28/23 11:00 HIV 1&2 Antibody Non-reactive (Non-Reactiv) 05/28/23 11:00 Vitals Last Vital Signs Temp 97.6 F 05/29/23 05:50 Pulse 71 05/29/23 05:50 Resp 17 05/29/23 14:23 BP 129/63 05/29/23 05:50 Pulse Ox 94 05/29/23 14:23 O2 Del Method Room Air 05/29/23 05:50 O2 Flow Rate 6 05/28/23 11:26 Discharge Plan Discharge Patient Disposition: Home Health Service Condition: Stable Prescriptions: New Ferrex 150 150 mg iron Capsule 150 mg PO BIDWM 30 Days Qty: 60 0RF Stool Softener-Laxative 8.6-50 mg Tablet 2 tab PO BID Qty: 30 0RF Thera 400 mcg Tablet 1 tab PO DAILY Qty: 30 0RF acetaminophen 500 mg Tablet 1,000 mg PO Q8H 15 Days Qty: 0 0RF aspirin 325 mg Tablet,Delayed Release (Dr/Ec) 325 mg PO DAILY 30 Days Qty: 0 0RF meloxicam 7.5 mg Tablet 15 mg PO DAILY 30 Days Qty: 30 0RF oxycodone 10 mg tablet 5 - 10 mg PO Q4H PRN (Reason: pain) 7 Days Qty: 30 0RF Continued montelukast 10 mg tablet 10 mg PO QPM oxycodone-acetaminophen 10-325 mg tablet 1 tab PO TID loratadine [Claritin] 10 mg tablet 10 mg PO DAILY PRN (Reason: ALLERGIES) One-A-Day Men VitaCraves 200 mcg tablet,chewable 1 tab PO QAM lorazepam 0.5 mg tablet 0.5 mg PO DAILY PRN (Reason: anxiety) Qty: 15 3RF (DME) blood-glucose meter [Accu-Chek Dhara Plus Meter] Misc See Rx Instructions .Route Qty: 1 0RF Rx Instructions: use to check blood sugar three times daily atorvastatin 20 mg tablet 20 mg PO DAILY gabapentin 600 mg tablet 600 mg PO TID lisinopril 20 mg tablet 20 mg PO QAM baclofen 10 mg tablet 10 mg PO TID PRN (Reason: muscle spasm) Qty: 90 1RF (DME) lancets [BD Ultra Fine Lancets] 33 gauge misc See Rx Instructions .Route Qty: 100 2RF Rx Instructions: use to check blood sugar 4 times per day sertraline [Zoloft] 50 mg tablet 50 mg PO DAILY Qty: 90 1RF (DME) right leg brace See Rx Instructions .Route .MEDSUPPLY Qty: 1 0RF Rx Instructions: As directed, perform maintenance and transfer to new boot and replace T strap and Velcro strap (DME) Accu-Chek Dhara Plus test strp Strip See Rx Instructions .Route Qty: 100 2RF Rx Instructions: use to check blood sugar tid mecobalamin (vitamin B12) 10,000 mcg recon soln 1,000 mcg IM .monthly Qty: 1 0RF Rx Instructions: + syringe/needle combo cholecalciferol (vitamin D3) [Vitamin D3] 50 mcg (2,000 unit) Capsule 50 mcg PO DAILY meloxicam 15 mg tablet 15 mg PO DAILY 90 Days Qty: 90 0RF Changed Novolin R FlexPen 100 unit/mL (3 mL) insulin pen 6 unit SUBCUT BID PRN (Reason: hyperglycemia) Qty: 15 2RF Lantus Solostar U-100 Insulin 100 unit/mL (3 mL) insulin pen 35 unit SUBCUT QAM Qty: 3 0RF Discharge Orders: Discharge Order (Routine); Ordered 05/29/23 Ordered By: Karen Larson Referrals: Karen Larson MD [Physician] - 06/10/23 2:15 pm Pamella Chiang MD [Physician] - 1-3 days (We have notified your physician's clinic of the need for a follow-up appointment to be scheduled. If you have not heard from them within the next 2 business days, please call them directly. ) Discharge Diet: Cardiac and Diabetic Discharge Activity: Limit activity as instructed, Use walker/crutches as instructed and As per PT/OT instructions Patient Instructions: Iron Supplements (By mouth), Aspirin (By mouth), Laxative, Stool Softeners (By mouth), Oxycodone, Rapid Release (By mouth), Meloxicam (By mouth), Total Knee Replacement (GEN), Joint Replacement Stoplight, Opioid Safety Activity Restrictions/Additional Instructions: Weightbearing as tolerated. Range of motion, gait training, ambulation, and strengthening per physical therapy. You may shower, but leave the clear plastic dressing in place. If it lifts up and leaks, you may remove it. Ice to knee. Discharge Attestations Time Spent in Discharge Care*: greater than 30 min Specific Discharge Activities: educating patient, educating and/or supporting family/caregiver, documenting/other paperwork and evaluating patient/reviewing data Quality Metrics Clinical Quality Measures [ No reported AMI, CVA or VTE this stay] Coding Level of Care Code Acute Code for Chg Fwd Diagnoses Status post total right knee replacement not using cement Z96.651 Generalized anxiety disorder F41.1 Hypertension I10 Diabetes E11.9 Diabetic neuropathy E11.40 Restless leg syndrome G25.81 Insomnia G47.00
--- NOTE | 2023-05-29 19:31 | PC.NURSE ---
Discussed discharge new medications, continued medications, held medications and stopped medications. Went over follow up appointments, restrictions and activities. Patient and spouse verbalized understanding.
== END 2023-05-29 16:19 | disposition home health service (06) ==
LOC: MEDSURG 08:43
PROVIDERS: Admitting Provider Specialist; PCP Nurse Practitioner Family; Visit Provider Specialist
PROC: 8E0Y0CZ Robotic Assisted Procedure of Lower Extremity, Open Approach (ICD-10-PCS; CPT 27447; principal; 2023-05-28 08:00)
DX: M17.11 Unilateral primary osteoarthritis, right knee (principal); F41.1 Generalized anxiety disorder; I10 Essential (primary) hypertension; E11.40 Type 2 diabetes mellitus with diabetic neuropathy, unspecified; G25.81 Restless legs syndrome; G47.00 Insomnia, unspecified; E78.5 Hyperlipidemia, unspecified; Z79.4 Long term (current) use of insulin
CPT/HCPCS: 20985; 27447; 36415; 36416; 51702; 73560; 82962; 85025; 86803; 87340; 87806; 96372; 97110; 97116; 97161; 97165; C1776; C9290; G0378; J0131; J0690; J1100; J1170; J1815; J2371; J2704; J2795; J3370; J3490; J7030

== ENCOUNTER → 2023-06-05 08:58 | Outpatient (BNVA) | payer MEDICARE, SELFPAY | PROVIDERS: PCP Nurse Practitioner Family; Visit Provider Internal Medicine | DX: E11.9 Type 2 diabetes mellitus without complications (principal); I10 Essential (primary) hypertension; E78.5 Hyperlipidemia, unspecified; E11.40 Type 2 diabetes mellitus with diabetic neuropathy, unspecified; Z96.651 Presence of right artificial knee joint; E16.0 Drug-induced hypoglycemia without coma; T38.3X5A Adverse effect of insulin and oral hypoglycemic [antidiabetic] drugs, initial encounter | CPT/HCPCS: 99024; 99204 ==

== ENCOUNTER → 2023-06-10 14:32 | Outpatient (BNVA) | payer MEDICARE, SELFPAY | PROVIDERS: PCP Nurse Practitioner Family; Visit Provider Nurse Practitioner | DX: Z96.651 Presence of right artificial knee joint (principal) | CPT/HCPCS: 73560; 73565; 99024 ==

== ENCOUNTER 2023-06-18 06:00 | Outpatient (RCR) | payer MEDICARE, SELFPAY | END 2023-07-14 23:59 | disposition home or self-care (01) | LOC: WPT 06:00 | PROVIDERS: Visit Provider Nurse Practitioner | DX: Z47.1 Aftercare following joint replacement surgery (principal); Z96.651 Presence of right artificial knee joint | CPT/HCPCS: 97110; 97112; 97161; 97530 ==

== ENCOUNTER 2023-07-15 06:00 | Outpatient (RCR) | payer MEDICARE, SELFPAY | END 2023-08-14 23:59 | disposition home or self-care (01) | LOC: WPT 06:00 | PROVIDERS: PCP Nurse Practitioner Family; Visit Provider Nurse Practitioner | DX: Z47.1 Aftercare following joint replacement surgery (principal); Z96.651 Presence of right artificial knee joint | CPT/HCPCS: 97110; 97112; 97530 ==

== ENCOUNTER → 2023-07-27 14:30 | Outpatient (BNVA) | payer MEDICARE, SELFPAY | PROVIDERS: PCP Nurse Practitioner Family; Visit Provider Specialist | DX: Z96.651 Presence of right artificial knee joint (principal) | CPT/HCPCS: 73560; 73565; 99024 ==

== ENCOUNTER → 2023-07-29 12:11 | Outpatient (BNVA) | payer MEDICARE, SELFPAY | PROVIDERS: PCP Nurse Practitioner Family; Visit Provider Internal Medicine | DX: E11.40 Type 2 diabetes mellitus with diabetic neuropathy, unspecified (principal); E16.0 Drug-induced hypoglycemia without coma; T38.3X5A Adverse effect of insulin and oral hypoglycemic [antidiabetic] drugs, initial encounter; E78.5 Hyperlipidemia, unspecified; I10 Essential (primary) hypertension; Z96.651 Presence of right artificial knee joint; E11.649 Type 2 diabetes mellitus with hypoglycemia without coma; X58.XXXA Exposure to other specified factors, initial encounter; Z79.4 Long term (current) use of insulin | CPT/HCPCS: 99214 ==

== ENCOUNTER → 2023-09-14 09:24 | Outpatient (BNVA) | payer MEDICARE, SELFPAY | PROVIDERS: PCP Nurse Practitioner Family; Referring Provider Internal Medicine; Visit Provider Nurse Practitioner Family | DX: E11.9 Type 2 diabetes mellitus without complications (principal); I10 Essential (primary) hypertension; E78.5 Hyperlipidemia, unspecified | CPT/HCPCS: 80053; 80061; 82043; 83036 ==

== ENCOUNTER → 2023-10-26 13:35 | Outpatient (BNVA) | payer MEDICARE, SELFPAY | PROVIDERS: PCP Nurse Practitioner Family; Visit Provider Nurse Practitioner | DX: Z96.651 Presence of right artificial knee joint (principal) | CPT/HCPCS: 73560; 73565; 99213 ==

== ENCOUNTER → 2023-11-05 11:15 | Outpatient (BNVA) | payer MEDICARE, SELFPAY | PROVIDERS: PCP Nurse Practitioner Family; Visit Provider Internal Medicine | DX: E16.0 Drug-induced hypoglycemia without coma (principal); T38.3X5A Adverse effect of insulin and oral hypoglycemic [antidiabetic] drugs, initial encounter; E78.5 Hyperlipidemia, unspecified; I10 Essential (primary) hypertension; E11.40 Type 2 diabetes mellitus with diabetic neuropathy, unspecified; Z96.651 Presence of right artificial knee joint; E11.649 Type 2 diabetes mellitus with hypoglycemia without coma; X58.XXXA Exposure to other specified factors, initial encounter; Z79.4 Long term (current) use of insulin | CPT/HCPCS: 99214 ==

== ENCOUNTER → 2024-01-26 09:20 | Outpatient (BNVA) | payer MEDICARE, SELFPAY | PROVIDERS: PCP Nurse Practitioner Family; Visit Provider Internal Medicine | DX: E11.9 Type 2 diabetes mellitus without complications (principal); E78.5 Hyperlipidemia, unspecified; I10 Essential (primary) hypertension; T38.3X5A Adverse effect of insulin and oral hypoglycemic [antidiabetic] drugs, initial encounter; E16.0 Drug-induced hypoglycemia without coma | CPT/HCPCS: 80053; 80061; 82043; 83036 ==

== ENCOUNTER 2024-02-19 10:00 | Outpatient (CLI) | payer MEDICARE, SELFPAY ==
--- NOTE | 2024-02-19 10:02 | MR_ITS ---
WS: [id number] MRI LUMBAR SPINE NONCONTRAST HISTORY: LUMBAR REGION RADICULOPATHY, history of prior L4-5 laminectomy. COMPARISON: None available. TECHNIQUE: Sagittal and axial multisequence imaging is submitted. Straightening of the normal cervical lordosis. C3 retrolisthesis by 3 mm. Straightening of the normal lumbar lordosis. L4 retrolisthesis by 5 mm. L5 anterolisthesis by 3 mm. Disc spaces are mildly narrowed and desiccated. Most significant narrowing at L4-5. Chronic degenerat hai changes in the endplates of L4 and L5. Conus terminates normally at L1-2 disc level. L1-L2: Normal. L2-L3: Mild annular disc bulging with moderate ligamentum flavum and facet arthritis. Small amount of fluid in the RIGHT facet joint. No stenosis. L3-L4: Mild diffuse annular disc bulging. There is a central disc protrusion which extends cephalad f rom the disc level. Small osteophyte may be present also. This disc osteophyte complex does abut the traversing LEFT L4 nerve root. Deformity of the thecal sac. Mild central, bilateral subarticular rece ss and foraminal stenosis. Slightly greater encroachment upon the LEFT traversing L4 nerve root. L4-L5: Marked osteophytic ridging and annular disc bulging. Marked facet and ligamentum flavum hypert rophy. Posterior large laminectomy defect. At the disc level there is deformity of the thecal sac res ulting in moderate to severe central with severe bilateral subarticular recess and severe bilateral f oraminal stenosis. Complete effacement of fat in the foramina. L5-S1: Diffuse annular disc bulging encroaching upon the ventral thecal sac. Facet joint arthritis an d disc disease encroaching upon the subarticular recesses and proximal foramina. Moderate to severe p roximal foraminal stenosis. There is contact on the L5 and S1 nerve roots. Slightly greater LEFT fora [place] stenosis. Paravertebral soft tissues are negative. Incompletely visualized LEFT renal cyst 1.3 cm. MR/MR lumbar spine wo con* [id number] IMPRESSION: 1. Severe degenerative disc disease at L4-5. Posterior laminectomy defects are noted at L4-5. 2. L4-5: Annular disc bulging with osteophytic ridging and facet arthritis. Mo derate to severe central with severe bilateral subarticular recess and foramina l stenosis. 3. L5-S1: Moderate to severe proximal foraminal stenosis due to disc, osteophy te and facet arthropathy. Greater encroachment upon the LEFT foramen and nerve roots. 4. L3-4: Central disc protrusion extends cephalad from the disc level. Disc os teophyte complex contacts the traversing LEFT L4 nerve root. Mild central and b ilateral subarticular recess and foraminal stenosis. Greater involvement of the LEFT traversing L4 nerve root.
== END 2024-02-19 10:01 | disposition home or self-care (01) ==
LOC: RAD 10:01
PROVIDERS: PCP Nurse Practitioner Family; Visit Provider Pain Medicine Interventional Pain Medicine
DX: M54.16 Radiculopathy, lumbar region (principal); M51.360 Other intervertebral disc degeneration, lumbar region with discogenic back pain only; M25.78 Osteophyte, vertebrae; M47.896 Other spondylosis, lumbar region; M99.63 Osseous and subluxation stenosis of intervertebral foramina of lumbar region
CPT/HCPCS: 72148

== ENCOUNTER → 2024-03-23 11:55 | Outpatient (BNVA) | payer MEDICARE, SELFPAY | PROVIDERS: PCP Nurse Practitioner Family; Visit Provider Internal Medicine | DX: E16.0 Drug-induced hypoglycemia without coma (principal); T38.3X5A Adverse effect of insulin and oral hypoglycemic [antidiabetic] drugs, initial encounter; E11.9 Type 2 diabetes mellitus without complications; E78.5 Hyperlipidemia, unspecified; I10 Essential (primary) hypertension; E11.40 Type 2 diabetes mellitus with diabetic neuropathy, unspecified; Z96.651 Presence of right artificial knee joint; X58.XXXA Exposure to other specified factors, initial encounter | CPT/HCPCS: 99214 ==

== ENCOUNTER → 2024-07-04 10:36 | Outpatient (BNVA) | payer MEDICARE, SELFPAY | PROVIDERS: PCP Nurse Practitioner Family; Visit Provider Nurse Practitioner | DX: Z98.890 Other specified postprocedural states (principal); Z96.651 Presence of right artificial knee joint | CPT/HCPCS: 73560; 73565; 99214 ==

== ENCOUNTER → 2024-08-04 09:57 | Outpatient (BNVA) | payer MEDICARE, SELFPAY | PROVIDERS: PCP Nurse Practitioner Family; Visit Provider Podiatrist Foot & Ankle Surgery | DX: M79.671 Pain in right foot (principal); M79.672 Pain in left foot; M21.371 Foot drop, right foot; E11.40 Type 2 diabetes mellitus with diabetic neuropathy, unspecified; M77.41 Metatarsalgia, right foot; M77.42 Metatarsalgia, left foot; L90.9 Atrophic disorder of skin, unspecified; Z79.4 Long term (current) use of insulin | CPT/HCPCS: 73630; 99203 ==

== ENCOUNTER 2024-08-11 13:24 | Outpatient (CLI) | payer MEDICARE, SELFPAY ==
--- NOTE | 2024-08-11 13:28 | USCV_ITS ---
Riley Brooks Age: 58 Gender: M : 1965 Exam Date: 08/11/2024 13:55 Ordering Phys: Lili Esteves NP Technologist: CAR Exam Location: [facility] [place] Indication: r/o dvt HISTORY: Lower extremity pain. LEFT PROCEDURES: Venous duplex imaging was performed in only the left lower extremity. The following venous structures were evaluated: common femoral vein, profunda vein, proximal portion of the greater saphenous vein, superficial femoral vein, and the popliteal vein. In addition, the posterior tibial and peroneal trunk were evaluated. FINDINGS: No evidence of DVT seen in any vessel visualized at this time. CONCLUSIONS No evidence of left lower extremity DVT. Gary Burris MD (Electronically Signed) Final Date: 11 Aug 2024 15:47 S
== END 2024-08-11 13:25 | disposition home or self-care (01) ==
PROVIDERS: PCP Nurse Practitioner Family; Visit Provider Nurse Practitioner Family
DX: M79.605 Pain in left leg (principal)
CPT/HCPCS: 93971

== ENCOUNTER 2024-08-27 11:36 | Emergency (ER) | payer MEDICARE, SELFPAY ==
[2024-08-27 11:39] VITALS: BP 147/69; PULSE 74; RESP 16; TEMP 36.6; O2SAT 95; BMI 27.3
[2024-08-27] MEDS: dexamethasone 10 mg/mL INJ IVP (12:23)
[2024-08-27] MEDS: orphenadrine 30 mg/mL Inj 2 mL 60 MG IVP (12:23)
[2024-08-27] MEDS: ketorolac 30 mg/mL INJ IVP (12:23)
[2024-08-27 12:25] VITALS: BP 124/80; PULSE 60; RESP 18; O2SAT 94
--- NOTE | 2024-08-27 13:13 | ED_ITS ---
HPI - Extremity Problem General: Chief complaint: Extremity Injury, Lower Stated complaint: pain in left side from knee to lower back Time Seen by Provider: 08/27/24 11:52 History of Present Illness: 58-year-old male presents emergency room complaining of pain from left side of his back radiates into his leg and thigh down to the level of his knee. He has not had any numbness in the perineum no fecal incontinence or urinary retention. He has had quite a bit of back trouble in the past. He has had advanced imaging at other places before he moved to this area. Seem to begin after he done some lifting. He has a foot drop from previous lumbar nerve impingement the foot drop is in the right leg. Associated symptoms: Deny chest pain, fever(s) or rash Related Data Home Medications ?Medication ?Instructions ?Recorded ?Confirmed montelukast 10 mg tablet 10 mg PO QPM 09/26/22 oxycodone-acetaminophen 5 mg-325 1 tab PO TID 08/27/24 08/27/24 mg tablet Previous Rx's ?Medication ?Instructions ?Recorded lancets 33 gauge (BD Ultra Fine #100 ea 10/28/22 Lancets) atorvastatin 20 mg tablet 20 mg PO DAILY #90 tabs 05/09 right leg brace #1 ea 12/15/23 blood sugar diagnostic (Accu-Chek #100 ea 03/23/24 Guide test strips) blood-glucose meter (Accu-Chek #1 ea 03/23/24 Guide Glucose Meter) insulin glargine 100 unit/mL (3 See Rx Instructions .R oute 03/23/24 mL) subcutaneous pen (Lantus .COMPLEX #15 mL Solostar U-100 Insulin) sertraline 50 mg tablet (Zoloft) 50 mg PO DAILY #90 ta bs 04/26/24 DM boots with 3 pairs of inserts, #1 ea 08/04/24 AFO brace to the right diclofenac sodium 75 mg 75 mg PO Q12H PRN pain #20 t abs 08/27/24 tablet,delayed release prednisone 20 mg tablet 20 mg PO TID #15 tabs pregabalin 75 mg capsule (Lyrica) 75 mg PO BID #60 cap s 08/27/24 Allergies Allergy/AdvReac Type Severity Reaction Status Date / Time metformin Allergy Unknown Uncoded 08/04/24 09:54 Review of Systems Const: Denies: fever(s) or chills Card: Denies: chest pain Resp: Denies: dyspnea GI: Denies: abdominal pain : Denies: dysuria, urinary frequency or urinary urgency Musc: Denies: neck pain or back pain Skin/Breast: Denies: rash PFSH ED PFSH: Medical History (Updated 08/27/24 @ 13:27 by Deon Perez DO) Instability of right knee joint Primary osteoarthritis of right knee Chronic neck pain Chronic low back pain History of depression History of anxiety Social History Smoking and tobacco/nicotine status: never used tobacco/nicotine Physical Exam Const: COMMON NORMALS: no acute distress GENERAL APPEARANCE: cooperative and comfortable ORIENTATION/CONSCIOUSNESS: Yes awake, Yes oriented to person, Yes oriented to place and Yes oriented to time HENMT: COMMON NORMALS: normocephalic, atraumatic and hearing grossly normal bilaterally HEAD & SCALP: normocephalic and atraumatic Resp: COMMON NORMALS: normal respiratory effort, No retractions, No use of accessory muscles and clear to auscultation bilaterally AUSCULTATION: clear to auscultation bilaterally Cardio: COMMON NORMALS: regular rate, regular rhythm and No murmurs present (Cardio) RATE: regular rate RHYTHM: regular rhythm GI: COMMON NORMALS: Soft to palpation and No hepatosplenomegaly present AUSCULTATION: Yes normoactive bowel sounds PALPATION: Yes Soft to palpation, No Tenderness to palpation present (GI), No Guarding due to palpation present (GI) and Yes No hepatosplenomegaly present Extremity: COMMON NORMALS: normal to inspection, capillary refill normal, no clubbing, cyanosis or edema, no calf tenderness and no pedal edema Neuro: SENSORIUM/ORIENTATION: Yes oriented to person, Yes oriented to place and Yes oriented to time OTHER: Deep tendon reflexes patellar tendon +1 of 4. Straight leg raising negative sensation lower extremities bilaterally normal Skin: COMMON NORMALS: no rashes or lesions noted GENERAL SKIN EXAM: no rashes or lesions noted Course Vital Signs: Vital signs: Vital Signs Temperature 97.8 F 08/27/24 11:39 Pulse Rate 85 08/27/24 13:52 Respiratory Rate 15 08/27/24 13:23 Blood Pressure 138/72 08/27/24 13:52 Pulse Oximetry 96 08/27/24 13:52 Oxygen Delivery Me thod Room Air 08/27/24 11:39 MDM - Extremity (Nontraumatic) Medical Decision Making Lumbar nerve impingement with radiculopathy. Discharged home with diclofenac prednisone taper also started on pregabalin 75 twice daily follow-up with orthopedic spine surgery. No radiology studies performed this visit Discharge Plan Discharge Patient Disposition: Home Clinical Impression: Lumbar back pain with radiculopathy affecting left lower extremity Condition: Stable Prescriptions: New prednisone 20 mg tablet 20 mg PO TID Qty: 15 0RF Rx Instructions: 1 p.o. 3 times daily x3 days, 1 p.o. twice daily x2 days, 1 p.o. daily x2 days diclofenac sodium 75 mg tablet,delayed release (DR/EC) 75 mg PO Q12H PRN (Reason: pain) Qty: 20 0RF pregabalin [Lyrica] 75 mg capsule 75 mg PO BID Qty: 60 0RF No Action montelukast 10 mg tablet 10 mg PO QPM (DME) Accu-Chek Guide test strips Strip See Rx Instructions .Route Qty: 100 5RF Rx Instructions: As directed TID Lantus Solostar U-100 Insulin 100 unit/mL (3 mL) insulin pen See Rx Instructions .ROUTE .COMPLEX Qty: 15 2RF Dose Instruction: INJECT 35 UNITS SUBCUTANEOUSLY EVERY MORNING Rx Instructions: INJECT 35 UNITS SUBCUTANEOUSLY EVERY MORNING (DME) blood-glucose meter [Accu-Chek Guide Glucose Meter] Misc See Rx Instructions .Route Qty: 1 0RF Rx Instructions: As directed (DME) DM boots with 3 pairs of inserts, AFO brace to the right See Rx Instructions .Route .MEDSUPPLY Qty: 1 0RF Rx Instructions: As directed to the shoe guys (DME) lancets [BD Ultra Fine Lancets] 33 gauge misc See Rx Instructions .Route Qty: 100 2RF Rx Instructions: use to check blood sugar 4 times per day atorvastatin 20 mg tablet 20 mg PO DAILY Qty: 90 0RF (DME) right leg brace See Rx Instructions .Route .MEDSUPPLY Qty: 1 0RF Rx Instructions: As directed, perform maintenance and transfer to new boot and replace T strap and Velcro strap sertraline [Zoloft] 50 mg tablet 50 mg PO DAILY Qty: 90 3RF oxycodone-acetaminophen 5-325 mg tablet 1 tab PO TID Discharge Orders: Discharge ED (Routine); Ordered 08/27/24 Ordered By: Deon Perez Referrals: Lili Esteves [employer] [Primary Care Provider, Nurse Practitioner] Discharge Diet: Usual diet Discharge Activity: Increase activity as tolerated Patient Instructions: Opioid Safety, Pain Management Activity Restrictions/Additional Instructions: Thank you for choosing [facility] for your healthcare needs today. It is very important that you follow up as instructed or that you return to the Emergency Department should you have concerns or if your condition changes or worsens in any way. You are seen emergency room with left leg radicular pain. Will recommend that you continue your baclofen use diclofenac instead of Celebrex and use a steroid taper. Will also start you on Lyrica 75 mg 1 tablet twice a day. Print Language: Filipino Coding Level of Care Code ED Tone Regulator for Francisco J Santos
[2024-08-27 13:23] VITALS: RESP 15; O2SAT 95
[2024-08-27] MEDS: morphine 4 mg/mL SDV 1 mL IVP (13:23)
[2024-08-27 13:52] VITALS: BP 138/72; PULSE 85; O2SAT 96
--- NOTE | 2024-08-29 07:38 | DCPLANNER ---
messaged ortho for er f/u
== END 2024-08-27 13:53 | disposition home or self-care (01) ==
PROVIDERS: Emergency Provider Family Medicine; PCP Nurse Practitioner Family
DX: M54.16 Radiculopathy, lumbar region (principal)
CPT/HCPCS: 96374; 96375; 99284; J1100; J1885; J2270; J2360

== ENCOUNTER 2024-10-20 11:30 | Outpatient (CLI) | payer MEDICARE, SELFPAY ==
--- NOTE | 2024-10-20 11:38 | XR_ITS ---
WS: [id number] XR bone length study [id number] REASON FOR EXAM: Limb Lenghth Discrepancy LE FINDINGS: Pelvis is rotated counterclockwise with the femoral head on the left 5 mm inferior to the right. The tibial plateaus are on the same level. There are old healed fractures of the mid diaphysis of the left tibia and fibula. The talar dome on the left is 15 mm superior to the right talar dome. XR/XR bone length study [id number] IMPRESSION: Compensatory clockwise rotation of the pelvis which aligns the tibial plateaus to the same level. There is a 15 mm discrepancy between the tibial plateaus and the talar domes wi th foreshortening of the left tibia and fibula due to old healed fractures.
== END 2024-10-20 11:31 | disposition home or self-care (01) ==
PROVIDERS: PCP Nurse Practitioner Family; Visit Provider Podiatrist Foot & Ankle Surgery
DX: M21.70 Unequal limb length (acquired), unspecified site (principal); E11.42 Type 2 diabetes mellitus with diabetic polyneuropathy; Z79.4 Long term (current) use of insulin; M77.41 Metatarsalgia, right foot; M77.42 Metatarsalgia, left foot; L90.9 Atrophic disorder of skin, unspecified; M21.379 Foot drop, unspecified foot
CPT/HCPCS: 77073

== ENCOUNTER → 2024-11-25 11:44 | Outpatient (BNVA) | payer MEDICARE, SELFPAY | PROVIDERS: PCP Nurse Practitioner Family; Visit Provider Nurse Practitioner | DX: M25.512 Pain in left shoulder (principal); M19.012 Primary osteoarthritis, left shoulder | CPT/HCPCS: 20610; 73030; 99214; J1100; J2795; J3301; J9999 ==

== ENCOUNTER → 2025-01-16 13:53 | Outpatient (BNVA) | payer MEDICARE, SELFPAY | PROVIDERS: PCP Nurse Practitioner Family; Visit Provider Nurse Practitioner | DX: S82.034A Nondisplaced transverse fracture of right patella, initial encounter for closed fracture (principal); X58.XXXA Exposure to other specified factors, initial encounter; Z96.651 Presence of right artificial knee joint; Z47.89 Encounter for other orthopedic aftercare | CPT/HCPCS: 73560; 73565 ==

== ENCOUNTER 2025-01-16 15:12 | Outpatient (CLI) | payer MEDICARE, SELFPAY | END 2025-01-16 15:13 | disposition home or self-care (01) | LOC: SPT 15:12 | PROVIDERS: PCP Nurse Practitioner Family; Visit Provider Nurse Practitioner | DX: Z47.89 Encounter for other orthopedic aftercare (principal); Z96.651 Presence of right artificial knee joint | CPT/HCPCS: 27520; 99214 ==

== ENCOUNTER 2025-01-18 09:29 | Outpatient (CLI) | payer MEDICARE, SELFPAY | END 2025-01-18 09:30 | disposition home or self-care (01) | LOC: WPT 09:29 | PROVIDERS: PCP Nurse Practitioner Family; Visit Provider Nurse Practitioner | DX: Z46.89 Encounter for fitting and adjustment of other specified devices (principal); M25.561 Pain in right knee | CPT/HCPCS: 97760; L1812 ==

== ENCOUNTER → 2025-02-06 09:12 | Outpatient (BNVA) | payer MEDICARE, SELFPAY | PROVIDERS: PCP Nurse Practitioner Family; Visit Provider Nurse Practitioner | DX: M25.561 Pain in right knee (principal) | CPT/HCPCS: 73560; 73565 ==

== ENCOUNTER 2025-02-16 10:50 | Outpatient (CLI) | payer MEDICARE, SELFPAY ==
--- NOTE | 2025-02-16 11:00 | MR_ITS ---
WS: [id number] MRI LEFT SHOULDER HISTORY: Chronic shoulder pain. COMPARISON: 11/25/2024 TECHNIQUE: Multiplanar sequences of the shoulder joint are submitted. Moderate AC joint arthritis. AC joint is narrowed with small osteophytes. There is a small osteochondral lesion in the distal clavicle. Diffuse synovitis. Small amount of fluid in the subacromial and subdeltoid bursa. Mild subacromial impingement. No os acromion. Biceps tendon is in normal position. Normal position of the humeral head with respect to the glenoid. Narrowing of the glenohumeral joint. Mild osteophytic ridging around the humeral head and glenoid. No rotator cuff muscle atrophy or edema. Small amount of fluid in the subarticular recess. No rotator cuff tendon tear is identified. There is severe thickening and increased signal in the distal supraspinatus tendon from tendinopathy. Mild tendinopathy in the distal subscapularis tendon. No infraspinatus tendon tear. Increased fluid in the biceps tendon sheath. There are multiple low signal nodules within the tendon sheath adjacent to the biceps tendon consistent with calcific tendinitis. There are multiple calcific deposits extending over a length of 3.6 cm. Degenerative changes in the labrum. No definite tears are identified. MR/MR shoulder LT wo con* [id number] IMPRESSION: 1. Biceps tendon remains in normal position. 2. Biceps tenosynovitis with calcific tendinitis. 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 3. Moderate AC joint arthritis. 4. Severe distal supraspinatus tendinopathy. No tendon tear identified. 5. Glenohumeral joint osteoarthritis with narrowing of the joint space of loss of cartilage. 6. Degenerative changes throughout the labrum. 7. Mild tendinopathy distal subscapularis tendon.
== END 2025-02-16 10:51 | disposition home or self-care (01) ==
LOC: RAD 10:51
PROVIDERS: PCP Nurse Practitioner Family; Visit Provider Nurse Practitioner
DX: M12.812 Other specific arthropathies, not elsewhere classified, left shoulder (principal)
CPT/HCPCS: 73221

== ENCOUNTER → 2025-02-21 10:22 | Outpatient (BNVA) | payer MEDICARE, SELFPAY | PROVIDERS: PCP Nurse Practitioner Family; Visit Provider Podiatrist Foot & Ankle Surgery | DX: E11.8 Type 2 diabetes mellitus with unspecified complications (principal); E11.40 Type 2 diabetes mellitus with diabetic neuropathy, unspecified; M77.41 Metatarsalgia, right foot; M77.42 Metatarsalgia, left foot; L90.9 Atrophic disorder of skin, unspecified; M21.371 Foot drop, right foot; Z79.4 Long term (current) use of insulin | CPT/HCPCS: 99213 ==

== ENCOUNTER → 2025-02-24 10:36 | Outpatient (BNVA) | payer MEDICARE, SELFPAY | PROVIDERS: PCP Nurse Practitioner Family; Visit Provider Nurse Practitioner | DX: M19.012 Primary osteoarthritis, left shoulder (principal) | CPT/HCPCS: 20610; 99214; J1100; J2795; J3301; J9999 ==

== ENCOUNTER → 2025-03-14 09:44 | Outpatient (BNVA) | payer MEDICARE, SELFPAY | PROVIDERS: PCP Nurse Practitioner Family; Referring Provider Nurse Practitioner Family; Visit Provider Internal Medicine Rheumatology | DX: M05.79 Rheumatoid arthritis with rheumatoid factor of multiple sites without organ or systems involvement (principal); Z79.899 Other long term (current) drug therapy; Z71.85 Encounter for immunization safety counseling; M25.50 Pain in unspecified joint; M81.0 Age-related osteoporosis without current pathological fracture; E11.9 Type 2 diabetes mellitus without complications; Z79.4 Long term (current) use of insulin | CPT/HCPCS: 36415; 80076; 82306; 82565; 83520; 85025; 85651; 86140; 86200; 86431; 86480; 86704; 86803; 87340; 99204 ==